=== PATIENT | female | born 1955 | race Caucasian/White ===

== ENCOUNTER → 2016-11-01 | Outpatient (CLI) | payer BC | LOC: MC.RAD 08:16 | DX: Z12.31 Encounter for screening mammogram for malignant neoplasm of breast (principal) ==

== ENCOUNTER → 2017-11-08 | Outpatient (CLI) | payer BC | LOC: MC.RAD 07:38 | DX: Z12.31 Encounter for screening mammogram for malignant neoplasm of breast (principal) ==

== ENCOUNTER → 2018-11-20 | Outpatient (CLI) | payer BC | LOC: MC.RAD 15:19 | DX: Z12.31 Encounter for screening mammogram for malignant neoplasm of breast (principal) ==

== ENCOUNTER → 2020-07-17 | Outpatient (CLI) | payer BC | LOC: MC.RAD 08:36 | DX: Z12.31 Encounter for screening mammogram for malignant neoplasm of breast (principal); Z01.419 Encounter for gynecological examination (general) (routine) without abnormal findings ==

== ENCOUNTER → 2021-09-29 | Outpatient (CLI) | payer MEDICARE | LOC: MC.RAD 08:25 | DX: Z12.31 Encounter for screening mammogram for malignant neoplasm of breast (principal) ==

== ENCOUNTER 2024-08-08 14:18 | Observation (INO) | payer MEDICARE ==
[~2024-08-08] VITALS: Ht 160 cm; Wt 68.6 kg
[2024-08-08] VITALS (7 sets, daily range): BP systolic 100–128; BP diastolic 57–75; PULSE 87–94; TEMP 98.1–98.5
[2024-08-08 16:39] LABS: BASO % 0.2 % (0.0-2.0); EOS % 0.1 % (0.0-4.0); GRAN # 12.5 K/mm3 (1.4-6.5); GRAN % 87.8 % (42.2-75.2); HEMATOCRIT 40.7 % (37.0-47.0); HEMOGLOBIN 14.2 g/dl (12.5-16.0); LYMPH # 0.9 K/mm3 (1.2-3.4); LYMPH % 6.3 % (20.0-51.0); MEAN CELL VOLUME 96 fl (80.0-100.0); MEAN CORPUSCULAR HEMOGLOBIN 34 pg (27-31); MEAN CORPUSCULAR HGB CONC 35 g/dl (33.0-37.0); MEAN PLATELET VOLUME 10.4 fl (7.4-10.4); MONO # 0.7 K/mm3 (0.1-0.6); MONO % 5.2 % (1.7-9.3); PLATELET COUNT 219 K/mm3 (130-400); RED BLOOD COUNT 4.22 M/mm3 (4.10-5.30); REDCELL DISTRIBUTION WIDTH-CV 12.8 % (11.5-14.5)
[2024-08-08 16:41] LABS: URINE APPEARANCE CLEAR (CLEAR/HAZY); URINE BLOOD NEGATIVE (NEGATIVE); URINE COLOR YELLOW (YELLOW); URINE GLUCOSE NEGATIVE (NEGATIVE); URINE KETONE 2+ (NEGATIVE); URINE NITRATE NEGATIVE (NEGATIVE); URINE PROTEIN(semi-quant) TRACE (NEGATIVE); URINE UROBILINOGEN 0.2 E.U/dL (0.2-1.0)
[2024-08-08] MEDS ORDERED: Acetaminophen 500 MG TAB PO ONE (16:45)
[2024-08-08] MEDS ORDERED: Ondansetron 4 MG/2 ML VIAL IV ONE (16:45)
[2024-08-08] MEDS ORDERED: NS 1,000 ML IV ONE (16:45)
[2024-08-08 16:46] LABS: COLLECTION METHOD CLEAN CATCH
[2024-08-08 17:00] LABS: ALBUMIN 3.7 g/dL (3.4-4.8); BILIRUBIN,TOTAL 0.7 mg/dL (0.2-1.2); C-REACTIVE PROTEIN 13.91 mg/dL (0.00-0.50); CREATININE, serum 0.83 mg/dL (0.57-1.11); POTASSIUM 3.9 mEq/L (3.5-4.5); TOTAL PROTEIN 7.3 g/dl (6.2-8.1)
[2024-08-08] MEDS ORDERED: Iohexol 300 - 100 ML VIAL IV ONE (17:16)
[2024-08-08] MEDS ORDERED: NS 100 ML IV ONE (17:18)
[2024-08-08] MEDS ORDERED: Lidocaine PF 2% (20 MG/ML) 5 ML VIAL ONE (18:21)
[2024-08-08] MEDS ORDERED: Rocuronium 50 MG/5 ML Multi-Dose VIAL ONE (18:21)
[2024-08-08] MEDS ORDERED: fentaNYL 50 MCG/ML 5 ML VIAL ONE (18:21)
[2024-08-08] MEDS ORDERED: Ondansetron 4 MG/2 ML VIAL ONE (19:00)
[2024-08-08] MEDS ORDERED: dexAMETHasone 10 MG/ML VIAL ONE (19:00)
[2024-08-08] MEDS ORDERED: fentaNYL 50 MCG/ML 1 ML SYRINGE/VIAL [PACU/SDC ONLY] IV PRN (19:15)
[2024-08-08] MEDS ORDERED: droPERidol 2.5 MG/ML 2 ML VIAL IV PRN (19:15)
[2024-08-08] MEDS ORDERED: Ondansetron 4 MG/2 ML VIAL IV PRN ×2 (19:15→20:30)
[2024-08-08] MEDS ORDERED: Morphine 2 MG/1 ML VIAL [PACU/SDC ONLY] IV PRN (19:15)
[2024-08-08] MEDS ORDERED: HYDROmorphone 1 MG/1 ML SYRINGE [PACU/SDC ONLY] IV PRN (19:15)
[2024-08-08] MEDS ORDERED: Meperidine 50 MG/ML 1 ML VIAL IV PRN (19:15)
[2024-08-08] MEDS ORDERED: Glycopyrrolate 0.2 MG/ML 1 ML VIAL ONE (19:26)
[2024-08-08] MEDS ORDERED: Neostigmine 1 MG/ML 10 ML Multi-Dose Vial ONE (19:26)
[2024-08-08] MEDS ORDERED: Morphine 4 MG/ML VIAL IV PRN (20:30)
[2024-08-08] MEDS ORDERED: NS 1,000 ML IV SCH (20:30)
[2024-08-08] MEDS ORDERED: Acetaminophen 500 MG TAB PO PRN (20:30)
--- NOTE | 2024-08-08 20:45 | NUR ---
PATIENT ADMITTED TO ROOM 316 BROUGHT UP BY PACU NURSE. VITAL SIGNS ARE: 108/61 BP, 94 PULSE, TEMP 98.1, 92 02 ON RA, RR 16. PATIET IS A&O X 4 AND IS ACCOMPANIED BY . CURRENTLY SHE RATES PAIN 3/10 AND DENIES NAUSEA. 3 LAP SITES TO ABDOMEN ARE CDI WITH BANDAIDS. BOWEL SOUNDS HYPOACTIVE IN UPPER QUADARANTS AND ABSENT IN LOWER QUADS. ERAS AND POSTOP VITALS INITIATED. PATIENT EDUCATION PROVIDED. MED REC COMPLETE. CALL LIGHT WITHIN REACH.
[2024-08-08] MEDS ORDERED: NEURONTIN300 MG/CAP PO (20:58)
[2024-08-08] MEDS ORDERED: COMPLETE MULTI1 TAB PO (20:58)
[2024-08-08] MEDS ORDERED: MAGNESIUM500 MG PO (20:59)
[2024-08-08] MEDS ORDERED: FOSAMAX 35MG35 MG PO (21:00)
[2024-08-09] VITALS (12 sets, daily range): BP systolic 100–125; BP diastolic 63–78; PULSE 77–84; TEMP 97.6–98.2
--- NOTE | 2024-08-09 00:09 | NUR ---
PATIENT AMBULATED WITHIN THE UNIT ASSISSTED BY BESSY. TOLERATING LIQUIDS AND APPLESAUCE WELL. URINATING KARLENE CLEAR URINE. HAS NOT PASSED GAS YET. C/O 5/10 ABDOMINAL PAIN. PRN NORCO AND TYLENOL ADMINISTERED.
--- NOTE | 2024-08-09 10:55 | NUR ---
nozzle and sleeve worker met with pt to discuss discharge planning. She confirmed to live with her , Jean Paul [phone] in [place]. She sees Dr. Welch for PCP needs and obtains medications from [facility] with no difficulties. She verified to have Medicare [employer] insurance. Pt reports to be independent with ADLS and uses no DME. She does not have a DPOA-HC and is agreeable to being NOK. She voiced no concerns with falls or mobility. Discharge Plan: home
--- NOTE | 2024-08-09 12:59 | NUR ---
D: Cable Braider stopped by room on rounds. A: Pt was resting and content with in the room. They [place]. Pt's grew up in the area. Pt has no needs right now. P: Cable Braider informed pt that if he needed anything from the consumer loan specialist area to let his nurse know. Cable Braider will follow up as needed.
--- NOTE | 2024-08-09 19:29 | NUR ---
BEDSIDE SHIFT REPORT RECIEVED AT THIS TIME.
--- NOTE | 2024-08-09 20:56 | NUR ---
SHIFT ASSESSMENT COMPLETED AT THIS TIME. PT A&OX4. PT REPORTS 3/10 PAIN LOCATED IN THE ABDOMEN BUT DENIES PAIN MEDICATION AT THIS TIME. PAITENT DENIES SOB AND NAUSEA. IV ANTIBIOTICS INFUSING INTO LEFT AC AT THIS TIME. MELITON DONOVNA. NO FURTHER NEEDS.
--- NOTE | 2024-08-09 22:41 | NUR ---
This nurse took over patient care at approximately 2144. Alert and oriented, and able to make needs known. Reported mild discomfort to abdomen. Up ambulating in halls. Stated she would call when ready for Tylenol. Peripheral INT to left AC. Denies SOB and dyspnea. LS CTA. HRR. BSAx4. Passing gas. No edema. Has three lap sites to abdomen from lap appy. Bandaids are in place, CDI. Voices no further questions, needs, or concerns at this time.
--- NOTE | 2024-08-10 | NUR ---
IV to left AC leaking. Zosyn running. IV taken out. New IV started to right forearm. Restarted Zosyn.
[2024-08-10 00:05] VITALS: BP 123/62; PULSE 87; TEMP 97.8
[2024-08-10 00:18] VITALS: BP_SYST 123
[2024-08-10 03:56] VITALS: BP 110/64; PULSE 83; TEMP 98.7
[2024-08-10 04:19] VITALS: BP_SYST 110
--- NOTE | 2024-08-10 05:57 | NUR ---
Patient has voiced no further complaints of pain or discomfort this shift. Received IV ABX per orders. Voices no questions, needs, or concerns at this time. In bed with call light within reach.
[2024-08-10] MEDS ORDERED: CIPRO 500MG TA500 MG PO (07:07)
[2024-08-10] MEDS ORDERED: FLAGYL500 MG PO (07:08)
[2024-08-10 07:24] VITALS: BP 107/68; PULSE 76; TEMP 98.1
[2024-08-10 09:28] VITALS: BP_SYST 107
--- NOTE | 2024-08-10 09:44 | NUR ---
THIS RN PROVIDED PATIENT WITH DISCHARGE EDUCATION AND INSTRUCTIONS. ALL QUESTIONS ANSWERED. IV TO RIGHT WRIST DISCONTINUED. MINIMAL DRAINAGE NOTED. DENIES FURTHER NEEDS OR CONCERNS AT THIS TIME.
--- NOTE | 2024-08-10 10:44 | NUR ---
PATIENT ESCORTED OFF UNIT BY PCT. ALL BELONGINGS WITH PATIENT.
== END 2024-08-10 10:35 | disposition home or self-care (01) ==
LOC: COL.ER 14:18 → MEDICAL 19:32
PROVIDERS: Emergency Medicine; ADMIT Surgery
DX: K35.32 Acute appendicitis with perforation, localized peritonitis, and gangrene, without abscess (principal)
CPT/HCPCS: G0378; J1100; J2405; J2543; J2704; J2710; J3010; J7030; Q9967